=== PATIENT | female | born 1985 | race Caucasian/White ===

== ENCOUNTER → 2021-09-23 09:28 | Outpatient (BNVA) | payer OTHER, SELFPAY | PROVIDERS: PCP Nurse Practitioner Family; Referring Provider Nurse Practitioner Family; Visit Provider Physician Assistant Surgical | DX: Z13.89 Encounter for screening for other disorder (principal) ==

== ENCOUNTER 2021-09-26 13:32 | Outpatient (REF) | payer OTHER, SELFPAY ==
[2021-09-27 15:08] LABS: H Pylori Breath Test Positive (Negative)
== END 2021-09-26 13:33 | disposition home or self-care (01) ==
LOC: HO.LNP 13:32
PROVIDERS: PCP Nurse Practitioner Family; Referring Provider Nurse Practitioner Family; Visit Provider Physician Assistant Surgical
DX: E66.01 Morbid (severe) obesity due to excess calories (principal); Z71.3 Dietary counseling and surveillance; Z11.0 Encounter for screening for intestinal infectious diseases
CPT/HCPCS: 83013; 99211; 99212

== ENCOUNTER 2021-10-06 09:46 | Outpatient (REF) | payer OTHER, SELFPAY ==
--- NOTE | ~2021-10-06 | XR_ITS ---
EXAMINATION: XR CHEST CLINICAL INFORMATION: Bariatric service evaluation; E66.01 COMPARISON: Chest radiographs 01/17/2018. TECHNIQUE: 2 views of the chest were obtained. FINDINGS: Low lung volumes. Lungs clear. Heart size normal. Vascularity normal. Costophrenic sulci are clear. The hilar and mediastinal contours and bony structures are similar to prior study. XR/XR chest 2V IMPRESSION: -Low lung volumes. -Lungs clear.
--- NOTE | 2021-10-06 09:57 | ECG_ITS ---
Test Reason : OBESITY Blood Pressure : / mmHG Vent. Rate : 079 BPM Atrial Rate : 079 BPM P-R Int : 146 ms QRS Dur : 082 ms QT Int : 396 ms P-R-T Axes : 030 -04 021 degrees QTc Int : 454 ms Normal sinus rhythm Normal ECG When compared with ECG of 17-JAN-2018 13:36, QT has lengthened Referred By: Mark Sanchez Electronically Signed By:Bob Olguin
[2021-10-06 10:17] LABS: MANUAL DIFF FLAG NO
[2021-10-06 10:31] LABS: Basophils Percent Auto 0.4 % (0-2); Eosinophils Absolute Auto 0.1 X10*3/uL (0.0-0.4); Eosinophils Percent Auto 1.1 % (0-4); Hematocrit 39.1 % (37.0-47.0); Hemoglobin 13.2 g/dl (12.0-16.0); Imm Gran Abs Auto 0.04 X10*3/uL (0.00-0.03); Imm Gran Pct Auto 0.4 % (0.0-0.4); Lymphocytes Absolute Auto 3.2 X10*3/uL (1.2-4.9); Mean Corpuscular HGB Conc 33.8 g/dl (31.0-35.0); Mean Corpuscular Volume 85.9 fL (80.0-98.0); Mean Platelet Volume 9.4 fL (9.4-12.3); Monocytes Absolute Auto 0.8 X10*3/uL (0.1-1.2); Monocytes Percent Auto 8.6 % (2-11); Neutrophils Absolute Auto 5.2 x10*3/uL (2.0-8.3); Neutrophils Percent Auto 55.5 % (45-73); Platelet Count 294 X10*3/uL (160-400); Red Blood Count 4.55 X10*6/uL (4.20-5.50); Red Cell Distribution Width 14.3 % (11.0-16.0); White Blood Count 9.3 X10*3/uL (4.8-10.8)
[2021-10-06 11:05] LABS: Alanine Aminotransferase 49 U/L (0-31); Albumin Level 4.3 g/dL (3.5-5.0); Alkaline Phosphatase 72 U/L (39-117); Anion Gap 14 (12-20); Aspartate Amino Transferase 36 U/L (5-31); Bilirubin Total 0.8 mg/dL (0.0-1.0); Blood Urea Nitrogen 10 mg/dL (9-16); C Reactive Protein 0.29 mg/dL (< or = 0.50); Calcium 9.3 mg/dL (8.4-10.2); Carbon Dioxide 24 mmol/L (22-29); Chloride 103 mmol/L (96-108); Cholesterol 169 mg/dL; Estimated Glomerular Filt Rate > 60; Glucose Random 107 mg/dL (60-115); HDL Cholesterol 41 mg/dL; Iron 46 mcg/dL (30-160); LDL Cholesterol Calculated 98 mg/dl; Percent Iron Saturation 10 % (15-50); Potassium 3.6 mmol/L (3.3-5.1); Sodium 137 mmol/L (135-145); Total Iron Binding Capacity 453 mcg/dL (228-428); Total Protein 7.7 g/dL (6.5-8.0); Triglycerides 151 mg/dL; Unsaturated Iron Binding 407 ug/dL
[2021-10-06 11:06] LABS: Estimated Average Glucose 105 mg/dL; Hemoglobin A1c % 5.3 %
[2021-10-06 11:25] LABS: Folate 15.3 ng/mL (> or = 4.0); Vitamin B12 458 pg/mL (200-900)
[2021-10-06 11:32] LABS: Ferritin 31 ng/mL (10-122); TSH reflex Free T4 1.06 uIU/mL (0.32-4.0)
[2021-10-06 11:43] LABS: Insulin 17 uU/mL (2-29)
[2021-10-07 14:16] LABS: Calcium (PTHI) 9.6 mg/dL (8.6-10.2); PTHI 63 pg/mL (16-77)
[2021-10-09 13:26] LABS: Zinc 70 mcg/dL (60-130)
[2021-10-10 15:33] LABS: Vitamin B1 9 nmol/L (8-30)
[2021-10-11 21:13] LABS: Vitamin A 42 mcg/dL (38-98)
== END 2021-10-06 09:47 | disposition home or self-care (01) ==
LOC: HO.XRAY 09:46
PROVIDERS: Visit Provider Physician Assistant Surgical
DX: Z01.818 Encounter for other preprocedural examination (principal); E66.01 Morbid (severe) obesity due to excess calories
CPT/HCPCS: 36415; 71046; 80053; 80061; 82306; 82607; 82728; 82746; 83036; 83525; 83540; 83970; 84425; 84443; 84590; 84630; 85025; 86140; 90791; 93005

== ENCOUNTER → 2021-10-14 14:09 | Outpatient (BNVA) | payer OTHER, SELFPAY | PROVIDERS: PCP Nurse Practitioner Family; Visit Provider Dietitian, Registered | DX: E66.01 Morbid (severe) obesity due to excess calories (principal); Z71.3 Dietary counseling and surveillance | CPT/HCPCS: 97802 ==

== ENCOUNTER 2021-10-28 08:33 | Outpatient (REF) | payer OTHER, SELFPAY ==
[2021-10-29 10:59] LABS: H Pylori Breath Test Negative (Negative)
== END 2021-10-28 08:34 | disposition home or self-care (01) ==
LOC: HO.LNP 08:33
PROVIDERS: PCP Nurse Practitioner Family; Referring Provider Nurse Practitioner Family; Visit Provider Physician Assistant Surgical
DX: Z01.818 Encounter for other preprocedural examination (principal); Z11.0 Encounter for screening for intestinal infectious diseases
CPT/HCPCS: 83013; 99211

== ENCOUNTER → 2021-10-29 14:25 | Outpatient (BNVA) | payer OTHER, SELFPAY | PROVIDERS: PCP Nurse Practitioner Family; Referring Provider Physician Assistant Surgical; Visit Provider Dietitian, Registered | DX: E66.01 Morbid (severe) obesity due to excess calories (principal); Z71.3 Dietary counseling and surveillance | CPT/HCPCS: 97803 ==

== ENCOUNTER 2021-11-20 09:02 | Outpatient (REF) | payer OTHER, SELFPAY ==
--- NOTE | ~2021-11-20 | US_ITS ---
EXAMINATION: US COMPLETE ABDOMEN WITH LIVER ELASTOGRAPHY CLINICAL INFORMATION: Obesity COMPARISON: None. TECHNIQUE: Real-time imaging of the abdominal viscera. Noninvasive ultrasound liver fibrosis assessment is performed using Jason ElastPQ point quantification shear wave elastography (2D-SWE) with a C5-2 MHz transducer. Multiple elastography samples are obtained. FINDINGS: PANCREAS: Normal. The visualized pancreatic head and body are normal in appearance. The remainder of the pancreas is obscured from visualization by the overlying bowel gas. ABDOMINAL AORTA: The proximal, middle, and distal aortic segments are normal in caliber. INFERIOR VENA CAVA: Visualized portions are normal. LIVER: Liver echotexture is slightly increased. The liver demonstrates normal size, and contour. No focal lesion or intrahepatic biliary duct dilatation. The right lobe measures 17 cm in length. The left lobe measures 10 cm in length. Portal flow is normal/hepatopedal Shear wave liver elastography median stiffness is 1.3 m/s (reference: normal median stiffness is 1.3 m/s or less). IQR/median stiffness to assess sampling precision is 0.03 (reference: good quality data set is IQR/median stiffness of 0.15 or less). GALLBLADDER: Surgically removed COMMON BILE DUCT: Normal in caliber measuring 0.4 cm in diameter. RIGHT KIDNEY: Normal. No hydronephrosis. No renal calculi or focal parenchymal lesions. The kidney measures 10.4 cm in maximum dimension. LEFT KIDNEY: Normal. No hydronephrosis. No renal calculi or focal parenchymal lesions. The kidney measures 11.9 cm in maximum dimension. SPLEEN: Normal. The spleen measures 10.7 cm in maximum dimension. FREE FLUID: None. US/US abdomen comp w elastography IMPRESSION: 1. Impression: Echogenic liver probably representing fatty infiltration. Postcholecystectomy. 2. Liver elastography: Adequate liver sampling. Normal liver stiffness. REFERENCE: Society of Radiologists in Ultrasound Liver Stiffness Thresholds (2020): LIVER STIFFNESS THRESHOLDS: *Liver Stiffness equal or less than 1.3 m/s: High probability of being normal. *Liver Stiffness less than 1.7 m/s: In the absence of other known clinical signs, rules out compensated advanced chronic liver disease. *Liver Stiffness 1.7-2.1 m/s: Suggestive of compensated advanced chronic liver disease but need further test for confirmation. *Liver Stiffness over 2.1 m/s: Rules in compensated advanced chronic liver disease. *Liver Stiffness over 2.4 m/s: Suggestive of clinically significant portal hypertension. QUALITY OF DATA SET: *IQR/Median value equal or less than 0.15 implies a quality data set. *IQR/Median value over 0.15 implies a poor quality data set. SIGNIFICANT CHANGE FROM PRIOR EXAM: Significant change if liver stiffness measurement is 10% or greater from prior exam. OTHER CONSIDERATIONS: The stage of liver fibrosis may be overestimated in the setting of acute hepatitis, liver inflammation, elevated liver function tests, hepatic vascular congestion, obstructive cholestasis, non-fasting state, and infiltrative diseases such as amyloidosis and lymphoma. In some patients with NAFLD, the liver stiffness thresholds for compensated advanced chronic liver disease may be lower. In causes other than viral hepatitis and NAFLD, liver stiffness thresholds are not well established.
--- NOTE | ~2021-11-20 | FL_ITS ---
EXAMINATION: XR FLUOROSCOPY UPPER GI WITH AIR CLINICAL INFORMATION: Moderate/severe obesity due to excess calories. COMPARISON: None TECHNIQUE: Routine upper GI air-contrast study was performed in upright and lying position. FINDINGS: Following oral administration of thick barium and effervescent granules, there is normal propagation of bolus from the oral cavity through the pharynx, esophagus into stomach, without any evidence of obstruction, narrowing, or stricture. The course, caliber, and peristalsis of the stomach and the duodenum is normal. There is mild gastroesophageal reflux without hiatal hernia. FLUOROSCOPY TIME: 1.3 minutes DOSE AREA PRODUCT: 33.155 uGy-m2 (microgray-meter squared) FL/FL upper GI w air IMPRESSION: Mild gastroesophageal reflux without hiatal hernia. The rest of the upper GI exam is unremarkable.
== END 2021-11-20 09:03 | disposition home or self-care (01) ==
LOC: HO.US 09:02
PROVIDERS: Visit Provider Surgery
DX: E66.01 Morbid (severe) obesity due to excess calories (principal)
CPT/HCPCS: 74246; 76705; 76981

== ENCOUNTER 2021-12-24 09:18 | Inpatient (IN) | payer OTHER, SELFPAY ==
[2021-12-19 10:04] LABS: MANUAL DIFF FLAG NO
[2021-12-19 10:50] LABS: Basophils Percent Auto 0.3 % (0-2); Eosinophils Absolute Auto 0.1 X10*3/uL (0.0-0.4); Eosinophils Percent Auto 0.5 % (0-4); Hematocrit 40.6 % (37.0-47.0); Hemoglobin 13.3 g/dl (12.0-16.0); Imm Gran Abs Auto 0.03 X10*3/uL (0.00-0.03); Imm Gran Pct Auto 0.3 % (0.0-0.4); Lymphocytes Absolute Auto 2.4 X10*3/uL (1.2-4.9); Lymphocytes Percent Auto 25.4 % (20-40); Mean Corpuscular HGB Conc 32.8 g/dl (31.0-35.0); Mean Corpuscular Hemoglobin 28.3 pg (27.0-33.0); Mean Corpuscular Volume 86.4 fL (80.0-98.0); Mean Platelet Volume 10.2 fL (9.4-12.3); Monocytes Absolute Auto 0.7 X10*3/uL (0.1-1.2); Monocytes Percent Auto 6.9 % (2-11); Neutrophils Absolute Auto 6.4 x10*3/uL (2.0-8.3); Neutrophils Percent Auto 66.6 % (45-73); Platelet Count 275 X10*3/uL (160-400); Red Cell Distribution Width 14.2 % (11.0-16.0); White Blood Count 9.6 X10*3/uL (4.8-10.8)
[2021-12-19 10:52] LABS: INTERNATIONAL NORM RATIO 1.1 (0.9-1.1)
[2021-12-19 10:54] LABS: Partial Thromboplastin Time 35.6 SEC (26.0-36.4)
[2021-12-19 10:58] LABS: Estimated Average Glucose 94 mg/dL; Hemoglobin A1c % 4.9 %
[2021-12-19 11:16] LABS: Alanine Aminotransferase 26 U/L (0-31); Albumin Level 4.2 g/dL (3.5-5.0); Alkaline Phosphatase 70 U/L (39-117); Anion Gap 16 (12-20); Aspartate Amino Transferase 20 U/L (5-31); Bilirubin Total 0.6 mg/dL (0.0-1.0); Blood Urea Nitrogen 10 mg/dL (9-16); C Reactive Protein 0.23 mg/dL (< or = 0.50); Calcium 8.8 mg/dL (8.4-10.2); Carbon Dioxide 22 mmol/L (22-29); Chloride 106 mmol/L (96-108); Cholesterol 158 mg/dL; Estimated Glomerular Filt Rate > 60; Glucose Random 91 mg/dL (60-115); HDL Cholesterol 39 mg/dL; LDL Cholesterol Calculated 89 mg/dl; Potassium 4.1 mmol/L (3.3-5.1); Sodium 140 mmol/L (135-145); Total Protein 7.4 g/dL (6.5-8.0); Triglycerides 153 mg/dL
[2021-12-19 11:41] LABS: Insulin 14 uU/mL (2-29); TSH reflex Free T4 1.29 uIU/mL (0.32-4.0)
--- NOTE | 2021-12-20 14:29 | MHC.SHP ---
Pre-Procedural Eval Section A Date of Service: 12/20/21 The patient is an INPATIENT: Yes The History & Physical has been completed within 30 days and I have reviewed it.: Yes Section B Chief Complaint: obesity Relevant Family History (Specify if Yes): No Relevant Social History: None Present Medications: None History of Previous Operations: No relevant previous surgery Allergies: Allergies Allergy/AdvReac Type Severity Reaction Status Date / Time oxycodone Allergy Intermediate Hives Uncoded 12/12/21 08:39 Review of Systems Sugical H&P ROS: Negative: Constitution, Cardiovascular, Respiratory, Neurological, Psychiatric, Hem-Onc, Allergic/Immunologic, Gastrointestinal, Genitourinary, Musculoskeletal, Integumentary, Endocrine and Eyes/Ears/Nose/Throat Exam Surgical H&P Exam: Normal: HEENT, Normal: Heart, Normal: Lungs, Normal: Extremities, Normal: Abdomen, Normal: Skin and Normal: Neurological Plan Diagnosis/Plan: Unchanged I have reviewed the history and physical and performed a pertinent physical examination on my patient. No changes have occurred unless specified.
[2021-12-22 11:48] VITALS: BMI 40.6
--- NOTE | 2021-12-23 09:09 | HO.ANESPROP2 ---
Documented by User: Dee Remy NP 12/23/21 09:14 HPI - Anesthesia Eval Consult details Narrative: 36yo F for Gastrectomy Sleeve,EGD,poss diaphragmatic hernia,poss ventral hernia,poss open, PMFSH Active Problems Active Problems: All Active Problems (Updated 12/22/21 @ 11:18 by Donna Nielsen RN) Morbid obesity (Acute) [place] (obstructive sleep apnea) (Acute) Adjustment disorder with depressed mood (Acute) Past Medical History Medical History (Updated 12/24/21 @ 10:29 by Esau Sheriff MD) No pertinent past medical history [place] (obstructive sleep apnea) Family History Family History Mother Diabetes Chronic arthritis Father No problems noted. Brother Bipolar 1 disorder Daughter No problems noted. Daughter No problems noted. Son No problems noted. Surgical History Surgical History (Updated 12/23/21 @ 13:45 by Donna Nielsen RN) History of cholecystectomy History of tubal ligation Hx of section Social History Social History Are you a primary career and guidance counselor to a significant other at home: No Do you presently have visiting nurse or other home services: No Alcohol intake: current Alcohol intake frequency: holidays/special occasions only Patient Tobacco Use Status: Former Tobacco user Quit Date: 2019 Tobacco use type: Cigarette Use of substances other than those prescribed or required for medical reasons: No Have you been hit, kicked, punched, or otherwise hurt by someone within the past year? If so, by whom?: No Are you DNR?: No Advance Directives: No Advance Directives Information Provided: Yes Advance Directives on File: No Recently lost weight without trying: No How much weight loss: 24-33 pounds Eating poorly because of decreased appetite: No Nutrition screen score: 3 Nutrition Risks: No Nutritional Risk Patient : No FDLMP: 12/20/21 Meds Allergies Allergy/AdvReac Type Severity Reaction Status Date / Time oxycodone Allergy Intermediate Hives Uncoded 12/22/21 11:08 Home Medications Medication Instructions Recorded Confirmed Last Taken Type lysine 1,000 mg tablet 1,000 mg PO DAILY 09/23/21 12/22/21 Unknown History Exam Exam Date and Time: December 23, 2021 0909 Height,Weight and Vital Signs: Height 5 ft 3.5 in Weight 105.687 kg Pertinent Lab Results Pertinent Lab Results: Laboratory Tests 12/19/21 12/19/21 12/19/21 09:55 09:55 09:55 WBC 9.6 RBC 4.70 Hgb 13.3 Hct 40.6 MCV 86.4 MCH 28.3 MCHC 32.8 RDW 14.2 Plt Count 275 MPV 10.2 Immature Gran % (Auto) 0.3 Neut % (Auto) 66.6 Lymph % (Auto) 25.4 [place] % (Auto) 6.9 Eos % (Auto) 0.5 Baso % (Auto) 0.3 Lymph # (Auto) 2.4 [place] # (Auto) 0.7 Eos # (Auto) 0.1 Baso # (Auto) 0.0 Abs Immat Gran (auto) 0.03 Absolute Neuts (auto) 6.4 Absolute Nucleated RBC 0.000 Nucleated RBC % (auto) 0.0 PT 13.0 INR 1.1 APTT 35.6 Sodium 140 Potassium 4.1 Chloride 106 Carbon Dioxide 22 Anion Gap 16 BUN 10 Creatinine 0.77 Estim Creat Clear Calc TNP Estimated GFR > 60 Random Glucose 91 Estimat Average Glucose Hemoglobin A1c % Insulin Level 14 Calcium 8.8 Total Bilirubin 0.6 AST 20 D ALT 26 Alkaline Phosphatase 70 C-Reactive Protein 0.23 Total Protein 7.4 Albumin 4.2 Triglycerides 153 Cholesterol 158 LDL Cholesterol, Calc 89 HDL Cholesterol 39 TSH 1.29 Blood Type Antibody Screen 12/19/21 12/19/21 09:55 09:55 WBC RBC Hgb Hct MCV MCH MCHC RDW Plt Count MPV Immature Gran % (Auto) Neut % (Auto) Lymph % (Auto) [place] % (Auto) Eos % (Auto) Baso % (Auto) Lymph # (Auto) [place] # (Auto) Eos # (Auto) Baso # (Auto) Abs Immat Gran (auto) Absolute Neuts (auto) Absolute Nucleated RBC Nucleated RBC % (auto) PT INR APTT Sodium Potassium Chloride Carbon Dioxide Anion Gap BUN Creatinine Estim Creat Clear Calc Estimated GFR Random Glucose Estimat Average Glucose 94 Hemoglobin A1c % 4.9 Insulin Level Calcium Total Bilirubin AST ALT Alkaline Phosphatase C-Reactive Protein Total Protein Albumin Triglycerides Cholesterol LDL Cholesterol, Calc HDL Cholesterol TSH Blood Type O Positive Antibody Screen NEGATIVE Narrative Narrative: EKG Vent. Rate : 079 BPM ? ? Atrial Rate : 079 BPM ?? P-R Int : 146 ms? QRS Dur : 082 ms ? ? QT Int : 396 ms ? ? ? P-R-T Axes : 030 -04 021 degrees ?? QTc Int : 454 ms ? Normal sinus rhythm Normal ECG When compared with ECG of 17-JAN-2018 13:36, QT has lengthened Assessment and Plan Assessment Anesthesia Assessment: Chart Reviewed Documented by User: Minda Felipe MD 12/24/21 10:40 [facility] Active Problems Active Problems: All Active Problems (Updated 12/22/21 @ 11:18 by Donna Nielsen RN) Morbid obesity (Acute) [place] (obstructive sleep apnea) (Acute). Not using CPAP machine Adjustment disorder with depressed mood (Acute) Past Medical History Medical History (Updated 12/24/21 @ 10:29 by Esau Sheriff MD) No pertinent past medical history [place] (obstructive sleep apnea) Family History Family History Mother Diabetes Chronic arthritis Father No problems noted. Brother Bipolar 1 disorder Daughter No problems noted. Daughter No problems noted. Son No problems noted. Family history of problems with anesthesia: No Surgical History Surgical History (Updated 12/23/21 @ 13:45 by Donna Nielsen RN) History of cholecystectomy History of tubal ligation Hx of section History of Problems with Anesthesia: No Social History Social History Are you a primary career and guidance counselor to a significant other at home: No Do you presently have visiting nurse or other home services: No Alcohol intake: current Alcohol intake frequency: holidays/special occasions only Patient Tobacco Use Status: Former Tobacco user Quit Date: 2019 Tobacco use type: Cigarette Use of substances other than those prescribed or required for medical reasons: No Have you been hit, kicked, punched, or otherwise hurt by someone within the past year? If so, by whom?: No Are you DNR?: No Advance Directives: No Advance Directives Information Provided: Yes Advance Directives on File: No Recently lost weight without trying: No How much weight loss: 24-33 pounds Eating poorly because of decreased appetite: No Nutrition screen score: 3 Nutrition Risks: No Nutritional Risk Patient : No FDLMP: 12/20/21 Meds Allergies Allergy/AdvReac Type Severity Reaction Status Date / Time oxycodone Allergy Intermediate Hives Uncoded 12/22/21 11:08 Home Medications Medication Instructions Recorded Confirmed Last Taken Type lysine 1,000 mg tablet 1,000 mg PO DAILY 09/23/21 12/22/21 Unknown History Exam Height,Weight and Vital Signs: Height 5 ft 3.5 in Weight 105.687 kg Vital Signs Temp Pulse Resp BP Pulse Ox O2 Del Method 12/24/21 09:26 97.9 F 73 16 141/87 H 98 Room Air Pertinent Lab Results Pertinent Lab Results: Laboratory Tests 12/19/21 12/19/21 12/19/21 09:55 09:55 09:55 WBC 9.6 RBC 4.70 Hgb 13.3 Hct 40.6 MCV 86.4 MCH 28.3 MCHC 32.8 RDW 14.2 Plt Count 275 MPV 10.2 Immature Gran % (Auto) 0.3 Neut % (Auto) 66.6 Lymph % (Auto) 25.4 [place] % (Auto) 6.9 Eos % (Auto) 0.5 Baso % (Auto) 0.3 Lymph # (Auto) 2.4 [place] # (Auto) 0.7 Eos # (Auto) 0.1 Baso # (Auto) 0.0 Abs Immat Gran (auto) 0.03 Absolute Neuts (auto) 6.4 Absolute Nucleated RBC 0.000 Nucleated RBC % (auto) 0.0 PT 13.0 INR 1.1 APTT 35.6 Sodium 140 Potassium 4.1 Chloride 106 Carbon Dioxide 22 Anion Gap 16 BUN 10 Creatinine 0.77 Estim Creat Clear Calc TNP Estimated GFR > 60 Random Glucose 91 Estimat Average Glucose Hemoglobin A1c % Insulin Level 14 Calcium 8.8 Total Bilirubin 0.6 AST 20 D ALT 26 Alkaline Phosphatase 70 C-Reactive Protein 0.23 Total Protein 7.4 Albumin 4.2 Triglycerides 153 Cholesterol 158 LDL Cholesterol, Calc 89 HDL Cholesterol 39 TSH 1.29 Blood Type Antibody Screen 12/19/21 12/19/21 09:55 09:55 WBC RBC Hgb Hct MCV MCH MCHC RDW Plt Count MPV Immature Gran % (Auto) Neut % (Auto) Lymph % (Auto) [place] % (Auto) Eos % (Auto) Baso % (Auto) Lymph # (Auto) [place] # (Auto) Eos # (Auto) Baso # (Auto) Abs Immat Gran (auto) Absolute Neuts (auto) Absolute Nucleated RBC Nucleated RBC % (auto) PT INR APTT Sodium Potassium Chloride Carbon Dioxide Anion Gap BUN Creatinine Estim Creat Clear Calc Estimated GFR Random Glucose Estimat Average Glucose 94 Hemoglobin A1c % 4.9 Insulin Level Calcium Total Bilirubin AST ALT Alkaline Phosphatase C-Reactive Protein Total Protein Albumin Triglycerides Cholesterol LDL Cholesterol, Calc HDL Cholesterol TSH Blood Type O Positive Antibody Screen NEGATIVE Laboratory Results - last 24 hr 12/23/21 13:50 COVID-19 ([facility]) Negative COVID-19 Clin Com See Note Airway Mallampati Class: II TM Dist: >3cm Neck ROM: Full Loose/Missing/Broken Teeth: Yes (Chipped tooth bottom front) Heart: RRR Lungs: CTAB Assessment and Plan Assessment Anesthesia Assessment: Anesthesia Plan Discussed Final Anesthetic Review Family History of Problems with Anesthesia: No History of Problems with Anesthesia: No NPO: Yes ASA Class: III Final Preanesthetic Review: Meds/Allgs Chart Reviewed, Consent Obtained/Reviewed and Anes Risks/Benef Reviewed Patient Risk: Intermediate Procedure Risk: Intermediate Assessment/Block/Sedation in SS: Assess/Block/Sedation- Anesthetic Plan Anesthetic Plan: GA Disposition: Standard PACU and Inp. Admit - Standard Bed
[2021-12-23 14:30] LABS: COVID-19 Test Negative (Negative); IDNOW Serial# 9DB6401D
[2021-12-24] VITALS (16 sets, daily range): BP systolic 141–179; BP diastolic 83–114; PULSE 66–91; RESP 16–18; TEMP 36.1–37.1; O2SAT 91–99
[2021-12-24] MEDS: Lactated Ringers 1,000 ML 999 ML IV ×2 (09:39→10:31)
--- NOTE | 2021-12-24 09:51 | PHA.MEDREC ---
Pharmacy Consult ? Medication Reconciliation Pharmacy has completed the medication reconciliation.
--- NOTE | 2021-12-24 10:28 | PM.PNGS ---
Subjective Subjective Date of Service: 12/25/21 Interval history: Patient has mild incisional pain, but was able to ambulate and use the incentive spirometer. She is tolerating phase 1 bariatric diet Physical Exam Vital Signs: Vital Signs: Last Vital Signs Temp 97.9 F 12/24/21 09:26 Pulse 73 12/24/21 09:26 Resp 16 12/24/21 09:26 BP 141/87 H 12/24/21 09:26 Pulse Ox 98 12/24/21 09:26 O2 Del Method 12/24/21 09:26 BMI result Body Mass Index 40.6 GI: Inspection: Yes normal to inspection, Yes incision (clean, dry and intact) and Yes obesity Extrem: Right lower extremity: normal to inspection (no calf tenderness) Left lower extremity: normal to inspection (no calf tenderness) Objective Data Active Medications Lactated Ringer's (Lr) 1,000 mls @ 100 mls/hr IVCONT .Q10H STELLA Lactated Ringer's (Lr) 1,000 mls @ 999 mls/hr IV .Q1H1M STELLA Stop: 12/24/21 11:30 Last Admin: 12/24/21 09:39 Dose: 999 mls/hr Documented By: ENEDELIA Labs CBC & Chem 7: 12/25/21 05:20 12/25/21 05:20 Labs: Laboratory Results - last 24 hr 12/23/21 13:50 COVID-19 ([facility]) Negative COVID-19 Clin Com See Note Procedures Date of Service Date of Service: 12/25/21 Progress Note: A&P Assessment and plan (1) Morbid obesity: Status: Acute Assessment and Plan: s/p laparoscopic sleeve gastrectomy and gastropexy Doing well Check am labs. If OK, will discharge home? (2) [place] (obstructive sleep apnea): Status: Acute (3) GERD (gastroesophageal reflux disease): Status: Acute (4) Steatosis, liver: Status: Acute (5) S/P laparoscopic sleeve gastrectomy: Status: Acute Time Spent With Patient Time: Total time spent is greater than 50% in coordination of care (as documented) at patient's floor/unit and/or counseling patient: Quality Stroke Does the patient have a stroke diagnosis?: No VTE Prior VTE?: No VTE Risk Level:: Surgical - moderate VTE Device Contraindication: N/A - Device Ordered VTE Drug Contraindication: Treatment Not Indicated
--- NOTE | 2021-12-24 10:30 | PM.OP ---
Brief Operative Note Date of Service: 12/24/21 Pre-op diagnosis: Morbid obesity with comorbidities (see below) Post-op diagnosis: same Procedure: INITIAL PATIENT BMI ON PRESENTATION AT OUR OFFICE: 45 kg/m2 LAST BMI BEFORE SURGERY: 41.3 kg/m2 COMORBIDITIES: sleep apnea on CPAP, GERD, liver steatosis ?The patient presented to the Weight Management Program with significant obesity that was negatively impacting the patient's comorbidities as listed above.? The program is a phased program with a special focus on preoperative medical weight management to promote substantial weight loss and prepare the patients for the second phase of the program: bariatric surgery. The patient participated in an intensive weekly lifestyle ?intervention and exercise program during which the patient ?has lost between the initial office visit and the last preoperative visit 25.2lbs, or 9.75% of initial actual body weight. It was deemed appropriate for the patient to now have bariatric surgery. In light of the current Covid-19 pandemic and the well documented strong association of obesity and increased risk of worse outcomes if infected with Covid-19 (REFERENCES:https://pubmed.ncbi.nlm.nih.gov/80500852/,?https://pubmed.ncbi.nlm.nih.gov/98514785/), any delay in undergoing bariatric surgery may lead to the patient's worsening health condition and increased?risk of more severe Covid-19 disease if infected. In addition a recent?study from [facility] published in [facility] on 04/21/2021 ([email or web address]) found that, among patients with obesity, substantial weight loss achieved with surgery was associated with improved outcomes of COVID-19 infection. The findings suggest that obesity can be a modifiable risk factor for the severity of COVID-19 infection. In addition, the patient met the BMI-criteria for bariatric surgery based on the BMI on initial presentation. The patient should not be penalized for achieving such weight loss because ?it is not sustainable long-term without surgical intervention and it was achieved in preparation for bariatric surgery ?under my direction and based on my published research ([email or web address]:/[email or web address]).pdf and?https://www.soard.org/article/[email or web address](34)70141-X/pdf) ?that a 10% preoperative weight loss improves long-term weight loss after surgery and reduces perioperative complications.? Insurance carriers such as [facility] have endorsed my recommendations ?and have included in their policies criteria to include a 10% preoperative weight loss requirement. PROCEDURE: Esophago-gastroscopy, laparoscopic sleeve gastrectomy and laparoscopic gastropexy INDICATIONS: This is a 36 year-old female who was electively scheduled for laparoscopic, possibly open sleeve gastrectomy. The risks and complications of the procedure were discussed with the patient in advance, particularly the possibility of ; pulmonary embolism; staple line leak; bleeding; GERD; cardiac, pulmonary, or renal complications; as well as long-term problems such as insufficient weight loss, vitamin deficiency, strictures, or ulcers. The patient understood all the risks, and was in agreement to proceed with surgery. DESCRIPTION OF PROCEDURE: After informed consent was obtained from the patient, the patient was given preoperative antibiotics, and was transferred to the operating room. After successful induction of general anesthesia, pneumatic compression devices were placed on both lower extremities. An upper endoscopy was performed next. The oropharynx and esophagus appeared to be within normal limits. There was no diaphragmatic hernia present consistent with the findings of the preoperative upper GI. The stomach was entered. Then after all fluid and air were suctioned and the stomach was fully decompressed, the scope was withdrawn and secured in the mid esophagus. The patient was then prepped and draped in the usual sterile manner, and abdominal access was established at the right upper quadrant with the Dominique technique. A 12 mm blunt port was inserted, and the abdomen was insufflated with CO2 to a pressure of 15 mmHg. Under direct visualization, additional ports were placed, specifically two 5 mm Versi-step ports to the left upper quadrant, and a 5 mm Versi-Step port to the right upper quadrant. 1% lidocaine plain was used to infiltrate all port sites as well as all fascia defects. Following that, the patient was placed in a steep reverse Trendelenburg position. An additional 5 mm port was placed to the right flank for the Mediflex retractor that was used to retract the left lobe of the liver. The gastro-esophageal fat pad was opened with the ultrasonic device (Thleisaerbeat, Olympus) and the anterior esophagus and hiatus were exposed. The angle of His was opened with the ultrasonic device the fundus of the stomach from any diaphragmatic and splenic attachments. I then opened the gastrocolic ligament between the transverse colon and the greater curvature of the stomach with the ultrasonic device to enter the lesser sac and facilitate the ligation of the short gastric vessels. I started at a mid-point along the greater curvature and using the Thunderbeat, all short gastric vessels were divided all the way to the angle of His until the left nicolasa was completely dissected at its entirety. I then divided the gastro-colic ligament distally to a distance of about 3-4 cm proximal to the pylorus. The stomach was then divided transversely with one Endo RICKI-45 purple and four RICKI-60 articulating orange loads using the AEON stapler and loads. Every effort was made that the gastric sleeve had a tubular shape and an even caliber throughout. Once the sleeve resection was completed, the staple line of the gastric sleeve was reinforced with Hemoclips. The resected stomach was retrieved without difficulty from the Dominique port. A gastropexy was then performed in order to prevent postoperative GERD and partial gastric volvulus. Several interrupted 2.0 Surgidac sutures were placed between the sleeve's staple line and the previously divided greater omentum and gastro-colic ligament using the Endo-Stitch device. ?An upper endoscopy was performed. There was no narrowing at the GE junction. The scope was easily advanced all the way to the pylorus which was clearly visualized. There was no narrowing anywhere and the sleeve's caliber was even throughout. The sleeve's staple line was inspected and there was no evidence of ischemia, bleeding or dehiscence. At that point the gastroscope was withdrawn from the patient?s mouth while we were decompressing the bowel and the stomach from any remaining air. I looked into the lesser sac to see how the sleeve was situating and it was situating well. There was no bleeding from the staple line, spleen, or short gastric vessels. The Mediflex retractor was removed, and the undersurface of the liver was inspected and there was no bleeding. The patient was placed in supine position. I closed the fascial defect of the 12 mm port site with a figure of eight #1 Polysorb suture. Then 60cc Ropivacaine plain with 10 mg of Dexamethasone were used to infiltrate the fascial closure as well as all skin incisions. A total of 7ml of Zynrelef was applied in the Dominique wound. At this point, the abdomen was deflated, all ports were removed under direct vision, and no bleeding was noted from any of the port sites. The skin incisions were irrigated with saline and were closed with 4-0 absorbable monofilament sutures. Steri-Strips and OpSites were used to cover all incisions. The patient was extubated and was transferred in stable condition to the recovery room for further care. I was present and performed all chen parts of the procedure. Ms. Bejarano was the first aid teacher. There were no residents to assist with this case. Igor Sheriff MD, PhD, FACS Surgeon: Esau Sheriff MD Anesthesia: GETA, local and other (TAP block and 7ml Zynrelef) Was an Bullet Swaging Machine Adjuster used for this Procedure?: No Bullet Swaging Machine Adjuster: Hilda Bejarano Estimated blood loss (mL): 10 Urine output (mL): 0 (No Carrasquillo to record) Pathology: other (Stomach) Condition: stable Disposition: PACU
[2021-12-24 13:27] LABS: Hematocrit 39.8 % (37.0-47.0)
[2021-12-24] MEDS: Famotidine/PF 20 MG/2 ML VIAL IVPUSH ×2 (13:36→20:02)
[2021-12-24] MEDS: HYDROmorphone HCl 0.5 MG/0.5 ML SYRINGE 0.25 MG IVPUSH ×3 (13:36→20:01)
[2021-12-24] MEDS: ondansetron HCL 4 MG/2 ML VIAL IVPUSH ×2 (13:36→17:10)
[2021-12-24 13:40] LABS: Anion Gap 17 (12-20); Blood Urea Nitrogen 10 mg/dL (9-16); Calcium 8.5 mg/dL (8.4-10.2); Carbon Dioxide 21 mmol/L (22-29); Chloride 106 mmol/L (96-108); Creatinine Clr Calc Pharmacy 110.1; Estimated Glomerular Filt Rate > 60; Glucose Random 126 mg/dL (60-115); Potassium 4.2 mmol/L (3.3-5.1); Sodium 140 mmol/L (135-145)
[2021-12-24] MEDS: ceFAZolin Sodium/Dextrose,Iso 2 GM/50 ML PIGGYBACK IV (15:56)
[2021-12-24] MEDS: Metoclopramide HCl 10 MG/2 ML VIAL IVPUSH (20:01)
[2021-12-24] MEDS: Lactated Ringers 1,000 ML 100 ML IVCONT (21:47)
[2021-12-25] MEDS: ondansetron HCL 4 MG/2 ML VIAL IVPUSH (01:44)
[2021-12-25 04:00] VITALS: BP 134/88; PULSE 65; RESP 17; TEMP 36.6; O2SAT 95
[2021-12-25 06:47] LABS: MANUAL DIFF FLAG NO
[2021-12-25 06:53] LABS: Basophils Percent Auto 0.1 % (0-2); Hematocrit 39.6 % (37.0-47.0); Hemoglobin 13.1 g/dl (12.0-16.0); Imm Gran Abs Auto 0.08 X10*3/uL (0.00-0.03); Imm Gran Pct Auto 0.5 % (0.0-0.4); Lymphocytes Absolute Auto 1.3 X10*3/uL (1.2-4.9); Lymphocytes Percent Auto 8.9 % (20-40); Mean Corpuscular HGB Conc 33.1 g/dl (31.0-35.0); Mean Corpuscular Hemoglobin 28.2 pg (27.0-33.0); Mean Corpuscular Volume 85.3 fL (80.0-98.0); Mean Platelet Volume 10.5 fL (9.4-12.3); Monocytes Absolute Auto 0.7 X10*3/uL (0.1-1.2); Monocytes Percent Auto 4.9 % (2-11); Neutrophils Absolute Auto 12.9 x10*3/uL (2.0-8.3); Neutrophils Percent Auto 85.6 % (45-73); Platelet Count 294 X10*3/uL (160-400); Red Blood Count 4.64 X10*6/uL (4.20-5.50); Red Cell Distribution Width 14.2 % (11.0-16.0); White Blood Count 15.1 X10*3/uL (4.8-10.8)
[2021-12-25] MEDS: Famotidine/PF 20 MG/2 ML VIAL IVPUSH (07:16)
[2021-12-25 07:19] LABS: Anion Gap 16 (12-20); Blood Urea Nitrogen 7 mg/dL (9-16); Carbon Dioxide 22 mmol/L (22-29); Chloride 105 mmol/L (96-108); Creatinine Clr Calc Pharmacy 115.6; Estimated Glomerular Filt Rate > 60; Glucose Random 109 mg/dL (60-115); Potassium 4.1 mmol/L (3.3-5.1); Sodium 139 mmol/L (135-145)
[2021-12-25 07:39] VITALS: BP 142/93; PULSE 81; RESP 20; TEMP 36.2; O2SAT 96
--- NOTE | 2021-12-25 08:25 | MHC.CM.PN ---
PATIENT REPORTS LIVES WITH FAMILY INDEPENDENT AT HOME AND COMMUNITY HCP-EDUCATED, DECLINED TO COMPLETE AT THIS TIME USES CPAP EWA DENIES RECEIVING HOME SERVICES NOT COVID MITA'Victorina PCP FROM [facility] [place] TO TRANSPORT D/C PLAN: HOME SELF-CARE
--- NOTE | 2021-12-25 08:27 | MHC.CM.PN ---
PATIENT HAS BEEN MEDICALLY CLEARED FOR DISCHARGE TODAY; DISCHARGE DISPOSITION IS HOME SELF-CARE. SPOUSE TO TRANSPORT.
--- NOTE | 2021-12-25 09:25 | PM.DS ---
DS: Providers Provider Date of Service: 12/25/21 Date of admission: 12/24/21 09:18 Primary care physician: Unknown Physician DS: Diagnosis Discharge Diagnosis (1) Morbid obesity: Status: Acute (2) [place] (obstructive sleep apnea): Status: Acute (3) GERD (gastroesophageal reflux disease): Status: Acute (4) Steatosis, liver: Status: Acute (5) S/P laparoscopic sleeve gastrectomy: Status: Acute DS: Summary Hospital Course Hospital Course: ADMITTING DIAGNOSIS: morbid obesity DISCHARGE DIAGNOSIS: same, s/p laparoscopic sleeve gastrectomy PAST SURGICAL HISTORY: cholecystectomy, section PROCEDURE: upper endoscopy, laparoscopic sleeve gastrectomy DISCHARGE SUMMARY: History of Present Illness: The patient is a 36 year-old woman with a BMI of 45.4 kg/m2 and associated co-morbidities as described above. The patient had extensive work-up,lost 25.2 lbs preoperatively and was electively scheduled for laparoscopic, possible open sleeve gastrectomy and gastropexy. Risks and complications of the surgery were discussed with the patient in advance, particularly the possibility of , pulmonary embolism, anastomotic leak, bleeding, bowel injury, GERD, cardiac, renal or pulmonary complications. The patient understood all the risks and was in agreement with the surgical plan. Hospital Course: The patient underwent an uneventful laparoscopic sleeve gastrectomy with gastropexy on the day of admission. Postoperatively, the patient was transferred to the surgical floor. The patient received IV Acetaminophen and IV dilaudid for pain control. Patient was started on bariatric phase 1 diet POD #0. On postoperative day one, the patient was feeling well without nausea, vomiting, fevers, or tachycardia. The patient had some mild incisional pain and the abdomen was soft. On the morning of postoperative day one, the patient was continued on 1 ounce of water or ice every half hour. During the day, the patient did fairly well, having some incisional pain, but able to ambulate adequately and to tolerate liquids well. Since the patient is doing well, we decided that the patient was ready to be discharged. The patient was given instructions to follow-up with me next week and to call my office for any fever over 101, persistent abdominal pain, nausea, vomiting, GERD, symptoms of DVT such as calf tenderness, or leg swelling, or pulmonary embolism such as chest pain or shortness of breath. The patient was also instructed to drink 40-60 ounces of liquids per day using the 1-ounce cups. The patient had been given prescriptions for Tylenol for pain, Zofran prn for nausea, and pantoprazole and carafate previously. The patient was encouraged to ambulate and use the incentive spirometer. The patient was allowed to shower, but no baths, and encouraged to stay active at home. All of these instructions were given to the patient personally. All questions were answered and the patient understood all instructions, the instructions were also given to the patient in print. Time Spent with Patient Time attestation: Total time spent providing and/or coordinating discharge services: Discharge coordination time: Less than 30 minutes Quality: Safe Use of Opioids Does Pt have an Active Cancer Diagnosis on the Problem List?: No Quality: Stroke Does the patient have a stroke diagnosis?: No Physical Exam Vital Signs: Vital Signs: Last Vital Signs Temp 97.2 F 12/25/21 07:39 Pulse 81 12/25/21 07:39 Resp 20 12/25/21 07:39 BP 142/93 H 12/25/21 07:39 Pulse Ox 96 12/25/21 07:39 O2 Del Method 12/25/21 07:39 O2 Flow Rate 2.0 12/24/21 15:06 BMI result Body Mass Index 40.6 DS: Data Data Completed and Pending Pending studies at discharge: Pending at discharge 12/24/21 11:56 Surgical [PTH] Routine Labs on day of discharge: Laboratory Results - last 24 hr 12/24/21 12/24/21 12/25/21 13:22 13:22 05:20 WBC 15.1 H RBC 4.64 Hgb 13.0 13.1 Hct 39.8 39.6 MCV 85.3 MCH 28.2 MCHC 33.1 RDW 14.2 Plt Count 294 MPV 10.5 Immature Gran % (Auto) 0.5 H Neut % (Auto) 85.6 H Lymph % (Auto) 8.9 L [place] % (Auto) 4.9 Eos % (Auto) 0.0 Baso % (Auto) 0.1 Lymph # (Auto) 1.3 [place] # (Auto) 0.7 Eos # (Auto) 0.0 Baso # (Auto) 0.0 Abs Immat Gran (auto) 0.08 H Absolute Neuts (auto) 12.9 H Absolute Nucleated RBC 0.000 Nucleated RBC % (auto) 0.0 Sodium 140 Potassium 4.2 Chloride 106 Carbon Dioxide 21 L Anion Gap 17 BUN 10 Creatinine 0.83 Estim Creat Clear Calc 110.1 Estimated GFR > 60 Random Glucose 126 H Calcium 8.5 12/25/21 05:20 WBC RBC Hgb Hct MCV MCH MCHC RDW Plt Count MPV Immature Gran % (Auto) Neut % (Auto) Lymph % (Auto) [place] % (Auto) Eos % (Auto) Baso % (Auto) Lymph # (Auto) [place] # (Auto) Eos # (Auto) Baso # (Auto) Abs Immat Gran (auto) Absolute Neuts (auto) Absolute Nucleated RBC Nucleated RBC % (auto) Sodium 139 Potassium 4.1 Chloride 105 Carbon Dioxide 22 Anion Gap 16 BUN 7 L Creatinine 0.79 Estim Creat Clear Calc 115.6 Estimated GFR > 60 Random Glucose 109 Calcium 9.0 Discharge Plan Discharge Patient Disposition: Home, Self-Care Discharge Diagnosis: Morbid obesity Referrals: Physician,Unknown J [Primary Care Provider] - 1 Week Discharge Medications: Continued pantoprazole 40 mg tablet,delayed release (DR/EC) 40 mg PO DAILY Qty: 30 2RF sucralfate 100 mg/mL suspension 10 ml PO BID Qty: 400 2RF ondansetron HCl 4 mg tablet 4 mg PO Q12H Qty: 20 0RF Discontinued cholecalciferol (vitamin D3) 125 mcg (5,000 unit) capsule 125 mcg PO DAILY Qty: 30 3RF polyethylene glycol 3350 [Miralax] 17 gram powder in packet 17 g PO DAILY Qty: 14 0RF Rx Instructions: Do 7 packets of Miralax, mixing each one with 8oz of water on 12/22 and another 7 packets on 12/23/21 lysine 1,000 mg tablet 1,000 mg PO DAILY Discharge Orders: Discharge Order (Routine); Ordered 12/25/21 Ordered By: Esau Sheriff Activity on Discharge: No heavy lifting Stand Alone Forms: Patient Portal Discharge page Care Plan Goals: weight loss Health Concerns: morbid obesity Plan of Treatment: No tub baths, sex or returning to work until discussed at first post op appointment. No exercise, alcohol, tobacco or illegal drug use. Continue to use incentive spirometer hourly while awake. Walk in home for 5- 10 minutes every 2 hours during the first week. Continue phase 1 diet today and start phase 2 diet tomorrow morning. Follow all instructions in the bariatric handbook and call with any questions. 1. Please call your doctor or come back to the emergency room should any new symptoms arise. 2. You will receive a courtesy call from [facility] 24-48 hours after discharge. 3. Activity: abstain from alcohol, practice limited stair climbing, no bending, no driving, no exercise, no illicit substances, no lifting, no sex, no tub bath, no work. 4. Diet: continue as discussed with bariatric team.. 5. Dressing Change/Wound Care: Do not change or remove surgical dressings unless they are wet or soiled. 6. Call your doctor if: - Your temperature exceeds 101.5 F - You experience excessive pain or swelling - You have an unexpected reaction to medication - You have excessive bleeding - You experience continued vomiting/nausea - Your incision begins to separate - Your incision shows signs of infection such as increased redness, swelling, excessive pain, heat, or drainage (light blood or clear fluid is normal) 7. General instructions: No lifting greater than 5 lbs for the next 4 weeks[address] within 24 hours of taking narcotic pain medications. If you do not move your bowels in the next 2 days, please take milk of magnesia over the counter. Please follow the post op diet and do not advance your diet until you are seen in the office in about 2 weeks. Please walk around your home every hour or two to prevent blood clots from forming in your legs. You do not need to wake from sleeping to walk. Please sleep in a bed or couch to prevent kinking at the hips and knees. Please take your incentive spirometer (your lung check examiner) home with you and use it for the next few days to prevent pneumonias. You may shower, no hot tubs, baths or swimming pools. Please call the office with any questions or concerns such as increasing abdominal pain, fever, chills, shortness of breath, chest pain, leg pain or swelling, or redness or drainage from your incisions. Do not hesitate to contact the office with any questions at . The patient's medical history has been reviewed and they are considered low risk for post op DVT and therefore DVT prophylaxis is not considered necessary. Travel after surgery was reviewed. The patient has not disclosed any travel plans during the first 30 days after surgery and they have been advised that within the first 30 days after surgery any bus, plane, train or car travel over 2 hours in duration is contraindicated due to the possibility of developing blood clots from immobility. Any travel, needs to include periods of ambulation of 10 minutes in duration every 2 hours. The patient was instructed to discuss any plans for travel during this period with their bariatric surgeon. Assessment: stable, post op sleeve gstrectomy
--- NOTE | 2021-12-26 06:50 | HO.POSTANES ---
Post Anesthesia Evaluation Post Anesthesia Evaluation Vital Signs: Patient seen at 645am on 12/25/21. Compter having issues so note put in now Anesthesia: General Endotracheal-GETA Mental Status: Awake Pain Control: Satisfactory Nausea/Vomiting: None Hydration: Adequate Anesthesia-Related Issues: No Anes. Related Issues
== END 2021-12-25 09:45 | disposition home or self-care (01) | DRG 403 ==
LOC: HO.SSSA 09:21 → HO.S3 13:25
PROVIDERS: Physician Assistant; Physician Assistant Surgical; Admitting Provider Surgery; PCP Nurse Practitioner Family; Visit Provider Surgery
PROC: 0DB64Z3 Excision of Stomach, Percutaneous Endoscopic Approach, Vertical (ICD-10-PCS; CPT 43845; principal; 2021-12-24 10:10)
DX: E66.01 Morbid (severe) obesity due to excess calories (principal); K21.9 Gastro-esophageal reflux disease without esophagitis; K76.0 Fatty (change of) liver, not elsewhere classified; G47.33 Obstructive sleep apnea (adult) (pediatric); Z68.41 Body mass index [BMI] 40.0-44.9, adult; Z98.51 Tubal ligation status; Z87.891 Personal history of nicotine dependence; Z79.899 Other long term (current) drug therapy
CPT/HCPCS: 36415; 80048; 80053; 80061; 83036; 83525; 84443; 85014; 85018; 85025; 85610; 85730; 86140; 86850; 86900; 86901; 87635; 88307; 88342; A4649; C9088; J0131; J0690; J1100; J1170; J2250; J2405; J2765; J2795; J3010

== ENCOUNTER → 2022-01-15 12:54 | Outpatient (BNVA) | payer OTHER, SELFPAY | PROVIDERS: PCP Nurse Practitioner Family; Visit Provider Physician Assistant Surgical | DX: E66.9 Obesity, unspecified (principal); Z98.84 Bariatric surgery status; Z68.38 Body mass index [BMI] 38.0-38.9, adult | CPT/HCPCS: 99212 ==

== ENCOUNTER → 2022-01-30 12:02 | Outpatient (BNVA) | payer OTHER, SELFPAY | PROVIDERS: PCP Nurse Practitioner Family; Visit Provider Physician Assistant Surgical | DX: E66.9 Obesity, unspecified (principal); Z68.37 Body mass index [BMI] 37.0-37.9, adult; Z98.84 Bariatric surgery status | CPT/HCPCS: 99212 ==

== ENCOUNTER → 2022-03-02 13:53 | Outpatient (BNVA) | payer OTHER, SELFPAY | PROVIDERS: PCP Nurse Practitioner Family; Visit Provider Physician Assistant Surgical | DX: E66.9 Obesity, unspecified (principal); Z68.35 Body mass index [BMI] 35.0-35.9, adult; Z98.84 Bariatric surgery status | CPT/HCPCS: 99212 ==

== ENCOUNTER → 2022-03-30 13:27 | Outpatient (BNVA) | payer OTHER, SELFPAY | PROVIDERS: PCP Nurse Practitioner Family; Visit Provider Physician Assistant Surgical | DX: E66.9 Obesity, unspecified (principal); Z68.34 Body mass index [BMI] 34.0-34.9, adult; Z98.84 Bariatric surgery status | CPT/HCPCS: 99212 ==

== ENCOUNTER → 2022-06-10 11:16 | Outpatient (BNVA) | payer OTHER, SELFPAY | PROVIDERS: PCP Nurse Practitioner Family; Visit Provider Physician Assistant Surgical | DX: E66.9 Obesity, unspecified (principal); Z68.32 Body mass index [BMI] 32.0-32.9, adult; Z98.84 Bariatric surgery status | CPT/HCPCS: 99212 ==

== ENCOUNTER → 2022-09-08 10:47 | Outpatient (BNVA) | payer OTHER, SELFPAY | PROVIDERS: PCP Nurse Practitioner Family; Visit Provider Physician Assistant Surgical | DX: E66.9 Obesity, unspecified (principal); Z98.84 Bariatric surgery status; Z68.31 Body mass index [BMI] 31.0-31.9, adult | CPT/HCPCS: 99212 ==

== ENCOUNTER 2023-03-15 11:13 | Outpatient (REF) | payer OTHER, SELFPAY ==
[2023-03-15 12:25] LABS: MANUAL DIFF FLAG NO
[2023-03-15 12:54] LABS: Basophils Percent Auto 0.5 % (0-2); Eosinophils Absolute Auto 0.1 X10*3/uL (0.0-0.4); Eosinophils Percent Auto 0.8 % (0-4); Hematocrit 34.3 % (37.0-47.0); Hemoglobin 10.8 g/dl (12.0-16.0); Imm Gran Abs Auto 0.01 X10*3/uL (0.00-0.03); Imm Gran Pct Auto 0.2 % (0.0-0.4); Lymphocytes Absolute Auto 2.2 X10*3/uL (1.2-4.9); Lymphocytes Percent Auto 33.9 % (20-40); Mean Corpuscular HGB Conc 31.5 g/dl (31.0-35.0); Mean Corpuscular Hemoglobin 25.7 pg (27.0-33.0); Mean Corpuscular Volume 81.7 fL (80.0-98.0); Mean Platelet Volume 9.6 fL (9.4-12.3); Monocytes Absolute Auto 0.6 X10*3/uL (0.1-1.2); Monocytes Percent Auto 9.7 % (2-11); Neutrophils Absolute Auto 3.6 x10*3/uL (2.0-8.3); Neutrophils Percent Auto 54.9 % (45-73); Platelet Count 299 X10*3/uL (160-400); Red Cell Distribution Width 13.5 % (11.0-16.0); White Blood Count 6.6 X10*3/uL (4.8-10.8)
[2023-03-15 13:26] LABS: Alanine Aminotransferase 13 U/L (0-31); Albumin Level 3.9 g/dL (3.5-5.0); Alkaline Phosphatase 69 U/L (39-117); Anion Gap 8 (12-20); Aspartate Amino Transferase 18 U/L (5-31); Bilirubin Total 0.6 mg/dL (0.0-1.0); Blood Urea Nitrogen 7 mg/dL (9-16); C Reactive Protein < 0.10 mg/dL (< or = 0.50); Calcium 8.7 mg/dL (8.4-10.2); Carbon Dioxide 26 mmol/L (22-29); Chloride 109 mmol/L (96-108); Cholesterol 157 mg/dL (<200); Estimated Glomerular Filt Rate > 60; Glucose Random 72 mg/dL (60-115); HDL Cholesterol 69 mg/dL (>40); Iron 53 mcg/dL (30-160); LDL Cholesterol Calculated 73 mg/dL (<100); Percent Iron Saturation 15 % (15-50); Potassium 3.7 mmol/L (3.3-5.1); Sodium 139 mmol/L (135-145); Total Iron Binding Capacity 349 mcg/dL (228-428); Triglycerides 76 mg/dL (<150); Unsaturated Iron Binding 296 ug/dL
[2023-03-15 13:27] LABS: Estimated Average Glucose 100 mg/dL; Hemoglobin A1c % 5.1 % (<6.0)
[2023-03-15 13:43] LABS: Ferritin 7 ng/mL (10-122); Insulin 6 uU/mL (2-29); TSH reflex Free T4 1.09 uIU/mL (0.32-4.0); Vitamin D 25-OH Total 22.3 ng/mL (>30)
[2023-03-15 13:55] LABS: Folate 16.8 ng/mL (> or = 4.0); Vitamin B12 541 pg/mL (200-900)
[2023-03-17 15:54] LABS: Calcium (PTHI) 8.7 mg/dL (8.6-10.2); PTHI 59 pg/mL (16-77)
[2023-03-17 17:48] LABS: Zinc 49 mcg/dL (60-130)
[2023-03-19 20:13] LABS: Vitamin A 36 mcg/dL (38-98)
[2023-03-20 15:08] LABS: Vitamin B1 27 nmol/L (8-30)
== END 2023-03-15 11:14 | disposition home or self-care (01) ==
LOC: HO.LAB 11:13
PROVIDERS: PCP Nurse Practitioner Family; Visit Provider Physician Assistant Surgical
DX: E66.9 Obesity, unspecified (principal); K59.00 Constipation, unspecified; Z98.84 Bariatric surgery status
CPT/HCPCS: 36415; 80053; 80061; 82306; 82607; 82728; 82746; 83036; 83525; 83540; 83970; 84425; 84443; 84590; 84630; 85025; 86140; 99212

== ENCOUNTER 2023-03-15 11:13 | Outpatient (AMB) | payer OTHER, SELFPAY ==
--- NOTE | 2023-03-15 11:22 | A.OFFVIS_ITS ---
Intake VS Expanded 03/15/23 11:29 BP 142/91 H Blood Pressure Location Rt brachial Blood Pressure Position Sitting Pulse 84 Pulse Source Pulse Oximeter Temp 98.0 F Temperature Source Temporal Artery Scan Pulse Oximetry 96 Oxygen Delivery Method Room Air Height 5 ft 2 in Weight 171 lb 6.4 oz BMI 31.3 Body Fat % 35.0 Body Fat Mass 60.0 Fat Free Mass 111.4 Visceral Fat Rating 7.0 Body Water % 46.6 Body Water Mass 79.8 Muscle Mass/Score 105.6 Basal Metabolic Rate/Score 1,531 Intake Visit Reasons: (OV) PO LSG 12/24/21 Combine Operator Required: No Allergies oxycodone Allergy (Intermediate, Uncoded 12/22/21 11:08) Hives Medication List - Last Reconciled 03/15/23 by KENNEDY Willoughby [bariatric MVI PO DAILY] HPI HPI Comments History of Present Illness Details This?a?37?yo female who is s/p LSG without hiatal hernia repair on?12/24/21. Presents for 1 year 3 month post op visit. Weight today is 171.4 pounds, with a BMI of 31.4. There has been a 89.4 pound weight loss,(initial weight 260.8 pounds) since starting the program on 09/26/21 reflecting a 34.2% total body weight loss and a weight loss of 60.9 pounds since surgery (operative weight 232.3 pounds) reflecting a 26.2% TBWL since surgery. No complaints of nausea, emesis, abdominal pain or reflux. Reports infrequent but normal bowel movements every 5-6 days and uses stool softeners regularly. [facility] [employer] 7-330 Present meal plan includes: 7am RTD Premier protein 9am HB egg w 1 toast or fit crunch bar noon salad-not measuring 7pm 8 forks protein and 8 forks salad/ve g +/- 1/2 c rice Drinking 60 oz water ? Exercise routine includes: flag football on wednesday cardio mix every other wednesday 1 hour PFSH Medical History [place] (obstructive sleep apnea) No pertinent past medical history Surgical History S/P laparoscopic sleeve gastrectomy History of tubal ligation History of cholecystectomy Hx of section Family History Mother Diabetes Chronic arthritis Father No problems noted. Brother Bipolar 1 disorder Daughter No problems noted. Daughter No problems noted. Son No problems noted. Social History Are you a primary respiratory care technician to a significant other at home: No Do you presently have visiting nurse or other home services: No Alcohol intake: current Alcohol intake frequency: holidays/special occasions only Patient Tobacco Use Status: Former Tobacco user Quit Date: 2019 Tobacco use type: Cigarette service: No Current occupational status: other Physical Exam Const General: healthy appearing and no acute distress Resp Effort & Inspection: normal respiratory effort Auscultation: clear to auscultation bilaterally Cardio Rate: regular rate Rhythm: regular rhythm GI Auscultation: normal bowel sounds Extrem General: Yes normal to inspection Assessment & Plan Assessment & Plan (1) Obesity: Code(s): E66.9 - Obesity, unspecified Plan: Will change meal plan: Premier protein powder, 1 scoop in the morning One hard boiled egg and/or half fit crunch bar Eight fork salad, 4 fork protein Other half of fit crunch bar Meal, 8 forks protein and 8 forks salad avoiding rice. Must resume exercise, she intends to go to the gym after work, encouraged to burn 300 calories daily. Encouraged get labs done. Return to clinic 6 weeks. (2) Constipation: Code(s): K59.00 - Constipation, unspecified Plan: Senna, 1 at HS. Medications: New sennosides (senna) 8.6 mg PO BEDTIME 90 tabs 1RF constipation 90 days Coding Level of Care Code Est Pt Level 3 (42067) Diagnoses Obesity E66.9 Constipation K59.00
[2023-03-15 11:29] VITALS: BP 142/91; PULSE 84; TEMP 36.7; O2SAT 96; BMI 31.3
== END 2023-03-15 11:48 | disposition home or self-care (01) ==
PROVIDERS: PCP Nurse Practitioner Family; Visit Provider Physician Assistant Surgical
DX: E66.9 Obesity, unspecified (principal); Z68.31 Body mass index [BMI] 31.0-31.9, adult; Z90.3 Acquired absence of stomach [part of]; Z98.84 Bariatric surgery status
CPT/HCPCS: 99214

== ENCOUNTER 2023-05-06 10:26 | Outpatient (AMB) | payer OTHER, SELFPAY ==
--- NOTE | 2023-05-06 10:13 | A.OFFVIS_ITS ---
Intake VS Expanded 05/06/23 10:16 Height 5 ft 2 in Weight 170 lb BMI 31.1 Intake Visit Reasons: (VIDEO) PO LSG 12/24/21 Allergies oxycodone Allergy (Intermediate, Uncoded 12/22/21 11:08) Hives Medication List - Last Reconciled 05/06/23 by KENNEDY Odom [bariatric MVI PO DAILY] cholecalciferol (vitamin D3) 50 mcg PO DAILY iron,carbonyl-vitamin C 65 mg iron- 125 mg (Vitron-C) 1 tab PO BEDTIME sennosides (senna) 8.6 mg PO BEDTIME 90 days vitamin A palmitate 10,000 units PO DAILY zinc gluconate 30 mg PO DAILY HPI HPI Comments History of Present Illness Details This?is a?37?yo female who is s/p LSG 12/24/2021. Presents for 16 month post op visit. Weight at last visit on 03/15/2023 was 171.4 pounds with a BMI of 31.3, weight today is 170 pounds, representing a 1.4 pound weight loss with a BMI today of 31.1.? No complaints of nausea, emesis, abdominal pain or reflux, or constipation. Eventual goal weight 160. Present meal plan includes: Premier protein powder, 1 scoop in the morning One hard boiled egg and/or half fit crunch bar Eight fork salad, 4 fork protein Other half of fit crunch bar Meal, 8 forks protein and 8 forks salad avoiding rice restarted taking vitamins consistently will sometimes make protein pancakes with a small amount of sausage Exercise routine includes: at the gym every other day, does mix of cardio and weights, 1 hour Lately has noticed some itching in excess skin of abdomen, moisture collecting in skin fold which results in unpleasant odor. She notices it especially when she is at work where she has to walk a lot in transport. Has tried OTC topical products that have not helped. COUNT INCLUDES THE [facility] Medical History [place] (obstructive sleep apnea) No pertinent past medical history Surgical History S/P laparoscopic sleeve gastrectomy History of tubal ligation History of cholecystectomy Hx of section Family History Mother Diabetes Chronic arthritis Father No problems noted. Brother Bipolar 1 disorder Daughter No problems noted. Daughter No problems noted. Son No problems noted. Social History Are you a primary skin care therapist to a significant other at home: No Do you presently have visiting nurse or other home services: No Alcohol intake: current Alcohol intake frequency: holidays/special occasions only Patient Tobacco Use Status: Former Tobacco user Quit Date: 2019 Tobacco use type: Cigarette service: No Current occupational status: other Assessment & Plan Assessment & Plan (1) Obesity: Code(s): E66.9 - Obesity, unspecified (2) S/P laparoscopic sleeve gastrectomy: Comment: 12/24/2021 Code(s): Z98.84 - Bariatric surgery status Plan Will mail out recipe book for bariatric meal ideas as pt reports boredom with lack of variety. She will continue high protein meal plan. Clotrimazole ointment ordered for issues of excess skin. RTC in 3 months, encouraged pt to reach out between appts via text with any concerns. Patient is obese and is not considered stable at this time. I spent a total of 30 minutes reviewing/updating records, examining the patient and counseling the patient on weight management as detailed above. Medications: New clotrimazole 1% 1 appl topical BID 45 grams 3RF Telehealth Telehealth Location of provider rendering services: practice address Location of patient: address on file Patient Identification confirmed using: Name, : Yes Telehealth method: voice only Patient verbally consented to treatment: Yes Patient verbally consented to billing insurance company: Yes Patient informed of any privacy concerns related to visit: Yes Minutes spent on Phone/Video with Pt.: 10 Coding Level of Care Code Tele New Pt Level 4 (16899) Diagnoses Obesity E66.9 S/P laparoscopic sleeve gastrectomy Z98.84
[2023-05-06 10:16] VITALS: BMI 31.1
== END 2023-05-06 10:31 | disposition home or self-care (01) ==
LOC: HO.HBS 10:26
PROVIDERS: PCP Nurse Practitioner Family; Visit Provider Physician Assistant Surgical
DX: E66.9 Obesity, unspecified (principal); Z68.31 Body mass index [BMI] 31.0-31.9, adult; Z90.3 Acquired absence of stomach [part of]; Z98.84 Bariatric surgery status
CPT/HCPCS: 99212

== ENCOUNTER → 2023-05-06 10:26 | Outpatient (BNVA) | payer OTHER, SELFPAY | PROVIDERS: PCP Nurse Practitioner Family; Visit Provider Physician Assistant Surgical ==